=== PATIENT | female | born 1935 | race Caucasian/White ===

== ENCOUNTER 2020-07-29 15:20 | Observation (INO) | payer MEDICARE, BC ==
[2020-07-29] MEDS: Sodium Chloride 0.9% 1,000 ML IV SCH (16:45)
--- NOTE | 2020-07-29 17:33 | CT ---
[id number] CT/CT Head WO IV EXAM: CT Head WO IV CLINICAL DATA: FALL. COMPARISON STUDY: None FINDINGS: No intracranial hemorrhage, extra-axial fluid collection, mass, or acute ischemia. Generalized parenchymal atrophy with scattered areas of nonspecific white matter disease, commonly seen as sequela of chronic microvascular ischemia. Soft tissues are unremarkable. Paranasal sinuses and mastoid air cells are clear. IMPRESSION: No acute intracranial findings. Sanford Colon DO 07/29/20 1739 Thank you for allowing us to participate in the care of your patient.
[2020-07-29] MEDS ORDERED: HYDROXYZINE HCL 10 MG PO PRN (17:39)
[2020-07-29] MEDS: Melatonin 3 MG Tab PO SCH (21:45)
[2020-07-29] MEDS: hydrOXYzine HCl 25 MG Tab PO PRN (21:45)
[2020-07-30] MEDS: Sodium Chloride 0.9% 1,000 ML IV SCH ×2 (05:30→20:26)
[2020-07-30 08:27] LABS: ANION GAP 16.7 mmol/L (5-15)
[2020-07-30] MEDS: Diltiazem 180 MG Cap.CD PO SCH (09:18)
[2020-07-30] MEDS: atorvaSTATin 10 MG Tab PO SCH (09:18)
[2020-07-30] MEDS: DULoxetine 30 MG Cap PO SCH (09:18)
[2020-07-30] MEDS ORDERED: ALPRAZolam 0.25 MG Tab PO PRN (12:59)
--- NOTE | 2020-07-30 13:18 | PCM.PN ---
- General Info Date of Service: 07/30/20 Functional Status: Reports: Pain Controlled, Tolerating Diet, Urinating. Denies: Ambulating - Review of Systems General: Reports: No Symptoms HEENT: Reports: No Symptoms Pulmonary: Denies: Shortness of Breath, Cough, Sputum Cardiovascular: Reports: Edema. Denies: Chest Pain Gastrointestinal: Denies: Abdominal Pain, Difficulty Swallowing Genitourinary: Denies: Dysuria Musculoskeletal: Reports: Foot Pain Skin: Reports: Bruising Neurological: Reports: Pre-Existing Deficit, Gait Disturbance. Denies: Confusion, Headache, Numbness, Trouble Speaking, Change in Speech Psychiatric: Reports: Anxiety. Denies: Confusion - Patient Data Vitals - Most Recent: Last Vital Signs Temp 96.7 F L 07/30/20 11:00 Pulse 89 07/30/20 11:00 Resp 20 07/30/20 11:00 BP 153/76 H 07/30/20 11:00 Pulse Ox 96 07/30/20 11:00 Orthostatic Blood Pressure [ 68/47 Standing] Orthostatic Blood Pressure [ 100/67 Sitting] Orthostatic Blood Pressure [ 136/72 Supine] Weight - Most Recent: 146 lb 14.4 oz I&O - Last 24 Hours: Intake & Output 07/29/20 07/30/20 07/30/20 22:59 06:59 14:59 Intake Total 500 1050 Output Total 200 850 Balance 300 200 Lab Results Last 24 Hours: Laboratory Results - last 24 hr 07/29/20 07/30/20 Range/Units 15:22 07:30 Sodium 144 (136-145) mmol/L Potassium 3.6 (3.5-5.1) mmol/L Chloride 105 (98-107) mmol/L Carbon Dioxide 25.9 (21.0-32.0) mmol/L Anion Gap 16.7 H (5-15) mmol/L BUN 27 H (7-18) mg/dL Creatinine 0.92 (0.51-1.17) mg/dL Est Cr Clr Drug Dosing 34.72 mL/min Estimated GFR (MDRD) 58 mL/min Glucose 118 (70-140) mg/dL Calcium 7.9 L (8.7-10.3) mg/dL SARS CoV-2 RNA Rapid [place] Negative (NEGATIVE) Med Orders - Current: Current Medications Alprazolam (Alprazolam 0.25 Mg Tab) 0.25 mg PO Q8H PRN PRN Reason: Anxiety Ascorbic Acid (Ascorbic Acid 500 Mg Tab) 250 mg PO DAILY [facility] Atorvastatin Calcium (Atorvastatin 10 Mg Tab) 10 mg PO QAM [facility] Last Admin: 07/30/20 09:18 Dose: 10 mg Documented by: Cholecalciferol (Cholecalciferol (Vitamin D3) 25 Mcg Tab) 50 mcg PO DAILY [facility] Diltiazem HCl (Diltiazem 180 Mg Cap.Cd) 180 mg PO QAM [facility] Last Admin: 07/30/20 09:18 Dose: 180 mg Documented by: Duloxetine HCl (Duloxetine 30 Mg Cap) 60 mg PO DAILY [facility] Last Admin: 07/30/20 09:18 Dose: 60 mg Documented by: Hydroxyzine HCl (Hydroxyzine Hcl 25 Mg Tab) 12.5 mg PO Q8HR PRN PRN Reason: Anxiety Last Admin: 07/29/20 21:45 Dose: 12.5 mg Documented by: Sodium Chloride (Normal Saline) 1,000 mls @ 75 mls/hr IV ASDIRECTED [facility] Last Admin: 07/30/20 05:30 Dose: 75 mls/hr Documented by: Melatonin (Melatonin 3 Mg Tab) 3 mg PO BEDTIME [facility] Last Admin: 07/29/20 21:45 Dose: 3 mg Documented by: Discontinued Medications Non-Formulary Medication (Hydroxyzine Hcl [Hydroxyzine Hcl]) 10 mg PO TID PRN PRN Reason: Anxiety - Exam Quality Assessment: Supplemental Oxygen General: Alert, Oriented, Cooperative, Mild Distress Lungs: Clear to Auscultation, Normal Respiratory Effort Cardiovascular: Regular Rate, Regular Rhythm GI/Abdominal Exam: Normal Bowel Sounds, Soft Extremities: Other (left ankle. mild edema and ecchymosis. Normal ROM no deformity. Some Tenderness to lateral malleolus. ) Skin: Other (Hematoma with slight bruising noted right/mid forehead; Ecchymosis to right forearm and left flank. ) - Patient Data Lab Results Last 24 hrs: Laboratory Results - last 24 hr 07/29/20 07/30/20 Range/Units 15:22 07:30 Sodium 144 (136-145) mmol/L Potassium 3.6 (3.5-5.1) mmol/L Chloride 105 (98-107) mmol/L Carbon Dioxide 25.9 (21.0-32.0) mmol/L Anion Gap 16.7 H (5-15) mmol/L BUN 27 H (7-18) mg/dL Creatinine 0.92 (0.51-1.17) mg/dL Est Cr Clr Drug Dosing 34.72 mL/min Estimated GFR (MDRD) 58 mL/min Glucose 118 (70-140) mg/dL Calcium 7.9 L (8.7-10.3) mg/dL SARS CoV-2 RNA Rapid [place] Negative (NEGATIVE) Result Diagrams: 07/30/20 07:30 Sepsis Event Note - Evaluation Sepsis Screening Result: No Definite Risk - Focused Exam Vital Signs: Vital Signs Temp Pulse Pulse Resp BP BP Pulse Ox 07/30/20 11:00 96.7 F L 89 20 153/76 H 96 07/30/20 09:18 99 159/82 H 07/30/20 06:00 97.4 F 88 18 138/72 93 L 07/30/20 03:00 97.5 F 88 18 140/74 92 L - Problem List Review Problem List Initiated/Reviewed/Updated: Yes - My Orders Last 24 Hours: My Active Orders 07/30/20 12:59 ALPRAZolam [Xanax] 0.25 mg PO Q8H PRN 07/31/20 09:00 Ascorbic Acid [Vitamin C] 250 mg PO DAILY Cholecalciferol (Vitamin D3) [Vitamin D3] 50 mcg PO DAILY - Plan Plan:: History summary Ms Acevedo is a 85yr female who was admitted into OBS status yesterday 07/30 by Marii Yap NP from an [facility] basically due secondary to neurological changes and mini blackouts. She had a chief complaint of left foot edema which seemed to have started approximately 5 months prior and she had localized pain to her left ankle. Although the patient is quite adamant how she never falls her daughter Susan ayoub enotes many falls along with multiple bruising. Daughter concerned as patient told her that she has had "mini blackouts" 2-3 days prior. Her daughter noticed that she had a hematoma and bruising to her for head, right forearm and left flank area--however when pressed by her daughter patient stated she was sitting on her walker and felt dizzy so she put her head between her legs and fell forward. Denies LOC, however unsure of patient's baseline mentation and these have been unwitnessed. Foot/leg symptoms started about 4-6 mos ago. Mild pain located to the ankle, but otherwise her sciatic pain is resolved. No pain, numbness, or tingling of leg. Ankle to toes are swollen, which is new. Denies any injury. Hasn't taken any pain relievers. Has tried PT (17 sessions) and 4 chiropractic treatments for this w/o improvement. Patient requesting a referral to a specialist for this. Note from daughter reveals that she has limited mobility d/t the sciatic pain and left foot swelling. Daughter had been to her house yesterday and after leaving the patient called her because she thought she was hiding in the patient's bedroom. Anxiety has been high the last few days. Did give her a hydroxyzine. Daughter is with her daily and does all the cooking, cleaning, transportation, and medications for her. They were originally interested in assisted living however they now desire long-term care. Daughter also mentions that she is very paranoid right now and at times delusional. Wt down 5 lbs s fe 07/10/20. Pertinent diagnostics 'Xray of ankle and foot obtained and reviewed. No acute fractures or dislocations noted; awaiting official report. Xray left hip (05/10/19) noted moderate degenerative change involving the left hip with superior joint space narrowing, sclerosis along superior acetabular margin and peripheral spurring. Patient has had many sessions (17) with physical therapy and auto care center manager (4) in the past for her sciatic leg issues w/o improvement. Denies any sciatic pain, but mobility is an issue. May consider MRI for further evaluation prior to referral to pain management/neurosurgery. Patient likely a poor surgical candidate.' CT head, no acute process Primary hospital problems --Frequent falls/Gait abnormality. --Orthostatic hypotension --Acute left ankle pain/Edema of left foot. --Pain in left leg, chronic. --Cognitive impairment, Baseline MOCA . --Paranoid behavior --Delusions/Major depressive disorder with single episode, in partial remission --Anxiety, worsening.Removed hydroxyzine, add low-dose Xanax --Stage 3b chronic kidney disease Chronic conditions: -HTN: On diltiazem ER 180 mg daily, lasix 20 mg twice weekly. -Anxiety/Depression: On cymbalta 60 mg daily, hydroxyzine 10 mg BID prn. -Stage 3b CKD. Followed by nephrology. Previous creatinine 1.16. Disposition/overall plan --Continue with normal saline, repeat orthostatics today and in a.m. --Patient will be discharged from observation status tomorrow into long-term [facility]. --Likely patient will need to be medicated for anxiety during this admission process --Code Status: DNR per patient and daughter. No POLST on file, however there is an advanced directive on file from 2012.
[2020-07-30] MEDS ORDERED: LORazepam 0.5 MG Tab PO PRN (17:21)
[2020-07-30] MEDS ORDERED: Sodium Chloride 0.9% 1,000 ML IV ONE (18:01)
[2020-07-30] MEDS ORDERED: Sodium Chloride 0.9% 1,000 ML ONE (18:07)
[2020-07-30] MEDS: Melatonin 3 MG Tab PO SCH (20:26)
[2020-07-31] MEDS: Sodium Chloride 0.9% 1,000 ML IV SCH (06:44)
[2020-07-31] MEDS: DULoxetine 30 MG Cap PO SCH (08:13)
[2020-07-31] MEDS: Diltiazem 180 MG Cap.CD PO SCH (08:14)
[2020-07-31] MEDS: atorvaSTATin 10 MG Tab PO SCH (08:14)
[2020-07-31 08:15] VITALS: BP 166/79; PULSE 96
[2020-07-31] MEDS ORDERED: Diltiazem 180 MG Cap.CD PO SCH (09:00)
[2020-07-31] MEDS ORDERED: Cholecalciferol (Vitamin D3) 25 MCG Tab PO SCH (09:00)
[2020-07-31] MEDS ORDERED: Ascorbic Acid 500 MG Tab PO SCH (09:00)
[2020-07-31] MEDS: hydrOXYzine HCl 25 MG Tab PO PRN (09:39)
--- NOTE | 2020-07-31 10:26 | PCM.DCSUM1 ---
Discharge Summary - Hospital Course Free Text/Narrative:: Date of admission: 07/29/20 Date of discharge: 07/31/20 Admission diagnoses: # Orthostatic hypotension # Presyncope # Frequent falls # Left foot pain # Debility/deconditioning # ADL/iADL deficit # HTN # Chronic kidney disease, stage 3b # Macrocytosis without anemia # Anxiety # Depression # Cognitive impairment, likely dementia Discharge diagnoses: # Orthostatic hypotension, improved # Presyncope, resolved # Frequent falls # Left foot pain, stable # Debility/deconditioning # ADL/iADL deficit # HTN # Chronic kidney disease, stage 3b # Macrocytosis without anemia # Anxiety # Depression # Cognitive impairment, likely dementia Consultations: director of cloud services/case management; appreciate assistance with patient's care coordination Procedures: None Hospital course: Mrs. Acevedo is an 85yoF with a history notable for HTN who was admitted into observation status for presyncope and orthostatic hypotension after clinic evaluation on 07/29/20. She was seen by RENAE Sánchez, on 07/29/20 for the chief complaint of left foot edema, which seemed to have started approximately 5 months prior an d she had localized pain to her left ankle. Although the patient was quite adamant that she never falls, her daughter Susan noted many falls and subsequent bruises. Daughter concerned as patient told her that she has had "mini blackouts" 2-3 days prior, though denied LOC and instead endorsed feeling lightheaded like she might pass out. Her daughter noticed that she had a hematoma and bruising to her for head, right forearm and left flank area, however when pressed by her daughter patient stated she was sitting on her walker and felt dizzy so she put her head between her legs and fell forward. Family was originally interested in pursuing assisted living placement, but have recently determined that long-term care would be more appropriate. MOCA performed in the clinic on day of admission = . On the day of admission, CBC and CMP were without concerns, XR ankle and foot were without acute abnormality, and CT head without acute process. Orthostatic hypotension noted associated with patient's lightheadedness. IVF were started and furosemide was held. She was continued on other medications as prescribed. Subsequently, she had resolution of lightheadedness and was ambulating with walker albeit noted to need reminders about safe ambulation and transfers. Despite significant acute anxiety and acting out regarding discussion about planned transfer to SNF on the day prior to discharge, she was quite calm and agreeable on the day of discharge and endorsed need for rehabilitation. POLST form was completed during her stay with discussions with the patient and POA/daughter, Susan. Discharge and follow-up recommendations: - Discharge to [facility] SNF in [place], [place], with PT/OT services - Medication changes at discharge: Discontinue furosemide prn - Follow-up with Dr. Cheryl Mclean or RENAE Hernandez, on SNF rounds - Pending results: B12 and folate levels added to [place] labs drawn 07/29/20 - Recommend consideration for additional neuropsychiatric evaluation and/or starting acetyl-cholinesterase inhibitor - Discharge Data Discharge Date: 07/31/20 Discharge Disposition: DC/Tfer to SNF 03 Condition: Good - Referral to Home Health Primary Care Physician: Marii Yap NP - Patient Summary/Data Consults: Consultations 07/29/20 16:38 Consult to Case Management/Fur Liner [CONS] Routine PT Evaluation and Treatment [CONS] Routine - Patient Instructions Diet: Regular Diet as Tolerated Activity: As Tolerated - Discharge Plan *PRESCRIPTION DRUG MONITORING PROGRAM REVIEWED*: Not Applicable *COPY OF PRESCRIPTION DRUG MONITORING REPORT IN PATIENT COLT: Not Applicable Home Medications: Home Meds Lutein/Minerals/Vit A,C & E [Ocuvite] 1 tab PO DAILY 07/29/20 [History] atorvaSTATin [Lipitor] 5 mg PO QAM 07/29/20 [History] Ascorbic Acid [Vitamin C] 250 mg PO DAILY 07/30/20 [History] Aspirin [Aspirin EC] 81 mg PO DAILY 07/30/20 [History] Cholecalciferol (Vitamin D3) [Vitamin D3] 2,000 unit PO DAILY 07/30/20 [History] dilTIAZem HCL [Cardizem Cd] 180 mg PO DAILY 07/30/20 [History] DULoxetine [Cymbalta] 60 mg PO DAILY cap 07/31/20 [Rx] hydrOXYzine HCL [hydrOXYzine] 12.5 mg PO Q8HR PRN tablet 07/31/20 [Rx] Referrals: [facility] [Outside] (See on rounds with Cheryl Mclean MD, and RENAE Hernandez) - Discharge Summary/Plan Comment DC Time >30 min.: Yes - General Info Subjective Update: Mrs. Acevedo reports feeling well this morning without any complaints. Endorses being ready for discharge to [place] for rehabilitation and strengthening. Though she denies that she has had many falls, she endorses needing to get stronger. Eating and drinking without difficulty; has been increasing water intake. Voiding and stooling without concerns. Denies lightheadedness, dizziness, chest pain, palpitations, or shortness of breath. - Patient Data Vitals - Most Recent: Last Vital Signs Temp 36.2 C 07/31/20 06:07 Pulse 96 07/31/20 08:14 Resp 16 07/31/20 06:07 BP 166/79 H 07/31/20 08:14 Pulse Ox 96 07/31/20 06:07 Orthostatic Blood Pressure [ 94/55 Standing] Orthostatic Blood Pressure [ 138/79 Sitting] Orthostatic Blood Pressure [ 166/79 Supine] Weight - Most Recent: 66.633 kg I&O - Last 24 hours: Intake & Output 07/30/20 07/31/20 07/31/20 22:59 06:59 14:59 Intake Total 1718 1770 Output Total 1500 1300 Balance 218 470 Lab Results - Last 24 hrs: Laboratory Results - last 24 hr 07/29/20 Range/Units 22:00 Specimen Type Urincc Urine Color Yellow (YELLOW) Urine Appearance Slightly cloudy H (CLEAR) Urine pH 5.5 (5.0-9.0) Ur Specific [place] 1.010 (1.005-1.030) Urine Protein Negative (NEGATIVE) mg/dL Urine Glucose (UA) Negative (NEGATIVE) mg/dL Urine Ketones Negative (NEGATIVE) mg/dL Urine Occult Blood Negative (NEGATIVE) Urine Nitrite Positive H (NEGATIVE) Urine Bilirubin Negative (NEGATIVE) Urine Urobilinogen 0.2 (0.2-1.0) E.U./dL Ur Leukocyte Esterase Moderate H (NEGATIVE) Urine RBC 0-5 (0-5) /HPF Urine WBC >100 H (0-5) /HPF Ur Epithelial Cells Moderate H /LPF Urine Bacteria Moderate H (NONE TO FEW) /HPF Med Orders - Current: Current Medications Ascorbic Acid (Ascorbic Acid 500 Mg Tab) 250 mg PO DAILY [facility] Last Admin: 07/31/20 08:13 Dose: 250 mg Documented by: Atorvastatin Calcium (Atorvastatin 10 Mg Tab) 10 mg PO QAM [facility] Last Admin: 07/31/20 08:14 Dose: 10 mg Documented by: Cholecalciferol (Cholecalciferol (Vitamin D3) 25 Mcg Tab) 50 mcg PO DAILY [facility] Last Admin: 07/31/20 08:13 Dose: 50 mcg Documented by: Diltiazem HCl (Diltiazem 180 Mg Cap.Cd) 180 mg PO QAM [facility] Last Admin: 07/31/20 08:14 Dose: 180 mg Documented by: Duloxetine HCl (Duloxetine 30 Mg Cap) 60 mg PO DAILY [facility] Last Admin: 07/31/20 08:13 Dose: 60 mg Documented by: Hydroxyzine HCl (Hydroxyzine Hcl 25 Mg Tab) 12.5 mg PO Q8HR PRN PRN Reason: Anxiety Last Admin: 07/31/20 09:39 Dose: 12.5 mg Documented by: Lorazepam (Lorazepam 0.5 Mg Tab) 0.5 mg PO Q8H PRN PRN Reason: Anxiety Last Admin: 07/30/20 20:26 Dose: 0.5 mg Documented by: Melatonin (Melatonin 3 Mg Tab) 3 mg PO BEDTIME [facility] Last Admin: 07/30/20 20:26 Dose: 3 mg Documented by: Discontinued Medications Alprazolam (Alprazolam 0.25 Mg Tab) 0.25 mg PO Q8H PRN PRN Reason: Anxiety Last Admin: 07/30/20 15:44 Dose: 0.25 mg Documented by: Sodium Chloride (Normal Saline) 1,000 mls @ 75 mls/hr IV ASDIRECTED [facility] Last Infusion: 07/30/20 18:03 Dose: 500 mls/hr Documented by: Sodium Chloride (Normal Saline) 1,000 mls @ 100 mls/hr IV ASDIRECTED [facility] Last Admin: 07/31/20 06:44 Dose: 100 mls/hr Documented by: Sodium Chloride (Normal Saline) 1,000 mls @ 500 mls/hr IV .BOLUS ONE Stop: 07/30/20 20:00 Last Admin: 07/30/20 18:11 Dose: 500 mls/hr Documented by: Sodium Chloride (Normal Saline) Confirm Administered Dose 1,000 mls @ as directed .ROUTE .STK-MED ONE Stop: 07/30/20 18:08 Last Admin: 07/30/20 18:16 Dose: Not Given Documented by: Non-Formulary Medication (Hydroxyzine Hcl [Hydroxyzine Hcl]) 10 mg PO TID PRN PRN Reason: Anxiety - Exam Physical Findings Comments:: GENERAL: Well-appearing elderly white female sitting in bedside chair in no acute distress. Son and [id number] at bedside. HEENT: Normocephalic, atraumatic. Conjunctiva clear. Nares patent without discharge. Mucous membranes moist. NECK: Supple, no masses. CV: Regular rate and rhythm, no murmurs, rubs, or gallops. 2+ radial pulses. PULMONARY: Normal effort, clear to auscultation bilaterally, no wheezes, rales, or rhonchi. ABDOMEN: Positive bowel sounds, soft, nontender, nondistended. EXTREMITIES: No edema, cyanosis, or clubbing. MUSCULOSKELETAL: Moves all extremities well. NEUROLOGICAL: No obvious deficits. DERMATOLOGIC: Multiple scattered ecchymoses. No rashes or suspicious lesions in exposed areas. PSYCHIATRIC: Alert, interactive, appropriate affect.
== END 2020-07-31 10:45 ==
LOC: KA.MS 15:20
PROVIDERS: ADMIT Nurse Practitioner Family; ATTEND Nurse Practitioner Family
DX: R55 Syncope and collapse (principal); E86.0 Dehydration; I95.1 Orthostatic hypotension; R29.6 Repeated falls; G89.29 Other chronic pain; M79.672 Pain in left foot; R53.81 Other malaise; I12.9 Hypertensive chronic kidney disease with stage 1 through stage 4 chronic kidney disease, or unspecified chronic kidney disease; N18.32 Chronic kidney disease, stage 3b; D75.89 Other specified diseases of blood and blood-forming organs; G31.84 Mild cognitive impairment of uncertain or unknown etiology; F41.9 Anxiety disorder, unspecified; F32.4 Major depressive disorder, single episode, in partial remission; Z20.822 Contact with and (suspected) exposure to COVID-19; Z79.899 Other long term (current) drug therapy
CPT/HCPCS: 36415; 70450; 80048; 81001; 97162-GP; A9270-GY; G0378; J7030; U0002

== ENCOUNTER 2023-08-16 23:28 | Emergency (ER) | payer BC, MEDICARE ==
[2023-08-16 23:58] LABS: BASOPHILS ABSOLUTE AUTO 0.03 10^3/uL (0.00-0.10); BASOPHILS PERCENT AUTO 0.3 % (0.0-1.0); EOSINOPHILS ABSOLUTE AUTO 0.02 10^3/uL (0.10-0.30); EOSINOPHILS PERCENT AUTO 0.2 % (1.0-3.0); HEMATOCRIT 43.7 % (37.0-47.0); HEMOGLOBIN 14.4 g/dL (12.0-16.0); IMMATURE GRAN ABSOLUTE AUTO 0.02 10^3/uL (0.00-0.50); IMMATURE GRAN PERCENT AUTO 0.2 % (0.0-5.0); LYMPHOCYTES ABSOLUTE AUTO 1.33 10^3/uL (1.00-4.00); LYMPHOCYTES PERCENT AUTO 11.5 % (20.0-40.0); MEAN CORPUSCULAR HEMOGLOBIN 32.1 pg (27.0-31.0); MEAN CORPUSCULAR VOLUME 97.3 fL (82.0-92.0); MEAN PLATELET VOLUME 12.3 fL (7.4-10.4); MONOCYTES ABSOLUTE AUTO 0.65 10^3/uL (0.10-0.80); MONOCYTES PERCENT AUTO 5.6 % (2.0-8.0); NEUTROPHILS ABSOLUTE AUTO 9.55 10^3/uL (2.50-7.00); NEUTROPHILS PERCENT AUTO 82.2 % (50.0-70.0); PLATELET COUNT,PLT 158 10^3/uL (150-400); RED BLOOD CELL COUNT 4.49 10^6/uL (3.80-5.50); RED CELL DISTRIBUTION WIDTH 12.9 % (11.5-14.5)
[2023-08-17 00:08] LABS: APPEARANCE,URINE SLIGHTLY CLOUDY (CLEAR); BILIRUBIN,URINE NEGATIVE (NEGATIVE); COLOR,URINE YELLOW (YELLOW); GLUCOSE,URINE NEGATIVE (NEGATIVE); KETONES,URINE 15 mg/dL (NEGATIVE); LEUKOCYTE ESTERASE,URINE MODERATE (NEGATIVE); NITRITE,URINE NEGATIVE (NEGATIVE); OCCULT BLOOD,URINE NEGATIVE (NEGATIVE); PH,URINE 5.5 (5.0-9.0); PROTEIN,URINE NEGATIVE (NEGATIVE)
[2023-08-17 00:09] LABS: ALBUMIN 3.47 g/dL (3.40-5.00); BILIRUBIN TOTAL 0.7 mg/dL (0.2-1.0); CALCIUM 8.6 mg/dL (8.7-10.3); CARBON DIOXIDE,CO2 28.8 mmol/L (21.0-32.0); CREATININE 0.95 mg/dL (0.51-1.17); EST CRCL DRUG DOSING (CG) 31.75 mL/min; POTASSIUM,K 3.8 mmol/L (3.5-5.1); PROTEIN TOTAL,TP 7.6 g/dL (6.4-8.2)
[2023-08-17 00:14] LABS: BACTERIA,URINE MODERATE /HPF (NONE TO FEW); EPITHELIAL CELLS,URINE MODERATE /LPF; RBC,URINE 0-5 /HPF (0-5); WBC,URINE 20-30 /HPF (0-5)
[2023-08-17 00:15] LABS: HYALINE CASTS,URINE RARE
[2023-08-17] MEDS: Sodium Chloride 0.9% 1,000 ML IV ONE (00:17)
[2023-08-17] MEDS: HYDROmorphone 1 MG/ML Syringe IVPUSH ONE (00:18)
[2023-08-17] MEDS: Iopamidol 755 Mg/ML 100 ML Bottle IV ONE (00:42)
[2023-08-17] MEDS: Sodium Chloride 0.9% 50 ML IV SCH (00:42)
[2023-08-17] MEDS: Acetaminophen/HYDROcodone 325-5 MG Tab PO ONE (01:42)
[2023-08-17] MEDS: Ciprofloxacin 500 MG Tab PO ONE (01:43)
[2023-08-17] MEDS: Ketorolac 30 MG/ML SDV IVPUSH ONE (01:45)
== END 2023-08-17 02:05 | disposition home or self-care (01) ==
LOC: KA.ED 23:28
DX: K44.9 Diaphragmatic hernia without obstruction or gangrene (principal); N39.0 Urinary tract infection, site not specified; K82.8 Other specified diseases of gallbladder; I10 Essential (primary) hypertension; E78.00 Pure hypercholesterolemia, unspecified; Z88.8 Allergy status to other drugs, medicaments and biological substances; Z79.899 Other long term (current) drug therapy; Z79.82 Long term (current) use of aspirin
CPT/HCPCS: 74177; 80053; 81001; 83605; 83690; 85025; 87086; 96361; 96374; 96375; 99284; 99284-25; A9270-GY; J1170; J1885; J3490; J7030; Q9967